=== PATIENT | male | born 2000 | race Caucasian/White ===

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

== ENCOUNTER 2019-04-11 14:58 | Emergency (ER) | payer MEDICAID ==
[~2019-04-11] VITALS: Ht 167.6 cm; Wt 55.8 kg
[~2019-04-11 14:58] MED LIST changes: +ERYT25CAEC PO; +HYDR-3715 PO; -NORCOTAB PO
--- NOTE | 2019-04-11 15:22 | REP ---
RIGHT ANKLE, FOUR VIEWS: There is no evidence of an acute fracture, dislocation or intrinsic bone disease. IMPRESSION: No fracture or dislocation. Electronically Signed by Kt Key MD 04/12/2019 04:47 P
[2019-04-11 16:29] VITALS: BP 112/69
== END 2019-04-11 16:55 | disposition home or self-care (01) ==
LOC: M ED 14:58
DX: S93.411A Sprain of calcaneofibular ligament of right ankle, initial encounter (principal); X50.1XXA Overexertion from prolonged static or awkward postures, initial encounter; Y92.099 Unspecified place in other non-institutional residence as the place of occurrence of the external cause; Y93.9 Activity, unspecified; Y99.9 Unspecified external cause status; F17.200 Nicotine dependence, unspecified, uncomplicated; Z91.89 Other specified personal risk factors, not elsewhere classified

== ENCOUNTER 2024-04-27 17:12 | Emergency (ER) | payer MEDICAID, OTHER ==
[~2024-04-27] VITALS: Ht 167.6 cm; Wt 61.1 kg
[~2024-04-27 17:12] MED LIST changes: -ASMA1AER2; +ERYT250C50 PO; -ERYT25CAEC PO; +MOME220A4
[2024-04-27 23:00] LABS: KETONE, URINE AUTO RFX NEGATIVE (NEGATIVE); LEUKOCYTE ESTERASE UR AUTO RFX NEGATIVE (NEGATIVE); MUCUS, URINE RFX SMALL (NEGATIVE); NITRITE, URINE AUTO RFX NEGATIVE (NEGATIVE); RBC, URINE AUTO RFX 0 /HPF (0-3); SQUAM EPITHELIAL CELL UR AURFX 0 /HPF (0-6); WBC, URINE AUTO RFX 0 /HPF (0-3)
[2024-04-28 00:01] LABS: Trichomonas vaginalis (AMP) NOT DETECTED (NEGATIVE)
[2024-04-28 00:25] LABS: GC DNA AMPLIFICATION NEGATIVE (NEGATIVE)
[2024-04-28] MEDS ORDERED: LACT20EL PO (01:12)
[2024-04-28] MEDS ORDERED: COLA100C5 PO (01:12)
[2024-04-28 01:16] VITALS: BP 110/74; TEMP 97.9; O2SAT 100
== END 2024-04-28 01:20 | disposition home or self-care (01) ==
LOC: M ED 17:12
DX: K59.00 Constipation, unspecified (principal); F17.200 Nicotine dependence, unspecified, uncomplicated; F12.10 Cannabis abuse, uncomplicated; Z91.048 Other nonmedicinal substance allergy status; Z79.899 Other long term (current) drug therapy